=== PATIENT | female | born 1965 | race Caucasian/White ===

== ENCOUNTER → 2016-08-09 | Outpatient (REF) | payer BC | LOC: M SFHCWAGY 10:11 | PROVIDERS: ATTEND Nurse Practitioner Women's Health | DX: Z12.4 Encounter for screening for malignant neoplasm of cervix (principal); Z12.31 Encounter for screening mammogram for malignant neoplasm of breast ==

== ENCOUNTER → 2016-08-09 | Outpatient (CLI) | payer BC ==
--- NOTE | 2016-08-09 11:25 | REPMRS ---
Patient History The patient states she had a clinical breast exam in 07/2016. Patient is postmenopausal. Family history of breast cancer in mother at age 75. Took hormonal contraceptives for 5 years. Digital Woman Screen Mammo: August 09, 2016 - Exam #: [id number] Bilateral CC and MLO view(s) were taken. Technologist: Shania Retana, Technologist Prior study comparison: August 09, 2015, digital woman screen mammo performed at [facility]. August 05, 2014, digital woman screen mammo performed at [facility]. FINDINGS: There are scattered fibroglandular densities. There has been no change in the appearance of the mammogram from the prior studies. There is a mild amount of residual fibroglandular tissue which is fairly symmetric. There is no interval development of dominant mass, architectural distortion, or clustered microcalcification suggestive of malignancy. No significant changes when compared with prior studies. ASSESSMENT: BI-RADS/ACR category 1 mammogram. Negative. Recommendation Routine screening mammogram in 1 year (for women over age 40). This mammogram was interpreted with the aid of an FDA-approved computer-aided dectection system. A. Negative x-ray reports should not delay biopsy if a dominant or clinically suspicious mass is present. B. Four to eight percent of cancers are not identified by mammography. C. Adenosis and dense breast may obscure an underlying neoplasm. Electronically Signed By: Rogelio Garvin MD 08/09/16 [id number]
== END ==
LOC: M WHC 10:03
PROVIDERS: ATTEND Nurse Practitioner Women's Health
DX: Z12.31 Encounter for screening mammogram for malignant neoplasm of breast (principal)

== ENCOUNTER → 2017-08-10 | Outpatient (CLI) | payer BC | LOC: M WHC 10:00 | DX: Z12.31 Encounter for screening mammogram for malignant neoplasm of breast (principal); R92.8 Other abnormal and inconclusive findings on diagnostic imaging of breast; Z78.0 Asymptomatic menopausal state; Z80.3 Family history of malignant neoplasm of breast; Z92.0 Personal history of contraception | CPT/HCPCS: 77067 ==

== ENCOUNTER → 2017-08-10 | Outpatient (REF) | payer BC | LOC: M SFHCWAGY 11:20 | DX: Z12.4 Encounter for screening for malignant neoplasm of cervix (principal); N95.2 Postmenopausal atrophic vaginitis | CPT/HCPCS: G0123 ==

== ENCOUNTER → 2017-10-30 | Outpatient (CLI) | payer BC ==
[~2017-10-30] MED LIST: GASTROGRAFIN SOLUTION 30ML (Q9963) As Ordered; ISOVUE-370 76% 100ML VIAL (Q9967) As Ordered
== END ==
LOC: M RAD 14:29
DX: C18.2 Malignant neoplasm of ascending colon (principal)
CPT/HCPCS: Q9963

== ENCOUNTER → 2017-12-11 | Outpatient (REF) | payer BC ==
[2017-12-11 13:08] LABS: INR 0.86; PROTHROMBIN TIME 11.8 SECONDS (12.1-14.4)
[2017-12-11 13:09] LABS: PARTIAL THROMBOPLASTIN TIME 27.5 SECONDS (25.4-37.6)
[2017-12-11 13:28] LABS: CARCINOEMBRYONIC ANTIGEN 1.4 NG/ML (<2.5)
== END ==
LOC: M LAB REF 12:50
DX: C18.9 Malignant neoplasm of colon, unspecified (principal)
CPT/HCPCS: 82378

== ENCOUNTER → 2018-01-08 | Outpatient (CLI) | payer BC | LOC: M PLARAD 11:09 | DX: C18.9 Malignant neoplasm of colon, unspecified (principal); R59.0 Localized enlarged lymph nodes | CPT/HCPCS: 78815 ==

== ENCOUNTER → 2018-01-09 | Outpatient (CLI) | payer BC ==
[~2018-01-09] MED LIST changes: -GASTROGRAFIN SOLUTION 30ML (Q9963) As Ordered; -ISOVUE-370 76% 100ML VIAL (Q9967) As Ordered; +LIDOCAINE 2% MDV 20 ML VIAL As Ordered; +ceFAZolin 1GM INJ (J0690 PER 500MG) As Ordered
== END | disposition home or self-care (01) ==
LOC: M IRPRO 07:47
DX: C18.9 Malignant neoplasm of colon, unspecified (principal)
CPT/HCPCS: 36561

== ENCOUNTER 2018-01-22 06:05 | Day surgery (SDC) | payer BC ==
[2018-01-22] MEDS: LR 1,000 ML IV (06:48)
[2018-01-22] MEDS ORDERED: PROPOFOL 200 MG/20 ML VIAL As Ordered (07:17)
[2018-01-22] MEDS ORDERED: ROCURONIUM BROMIDE 50 MG/5 ML VIAL As Ordered (07:17)
[2018-01-22] MEDS ORDERED: ONDANSETRON 4MG/2ML VIAL (J2405) As Ordered (07:17)
[2018-01-22] MEDS ORDERED: LIDOCAINE 2% INJ 100 MG/5 ML SDV (FOR ANES.) As Ordered (07:17)
[2018-01-22] MEDS ORDERED: dexameTHASONE 4 MG/ML 1ML VIAL (J1100) As Ordered (07:17)
[2018-01-22] MEDS ORDERED: MIDAZOLAM INJ 2 MG/2 ML VIAL (J2250) As Ordered (07:18)
[2018-01-22] MEDS ORDERED: fentaNYL 100 MCG/2 ML INJECTION (J3010) As Ordered (07:18)
[2018-01-22] MEDS: THROMBIN SOLN 20,000 UNITS KIT As Ordered (07:24)
[2018-01-22] MEDS: EPINEPHrine 1MG/10ML SYRINGE 1.5IN As Ordered (07:24)
[2018-01-22] MEDS: LIDOCAINE VISCOUS 2% SOLN 15ML UDC As Ordered (07:24)
[2018-01-22] MEDS: LIDOCAINE 1% SDV INJ 30 ML VIAL As Ordered (07:24)
[2018-01-22] MEDS: CETACAINE SPRAY 5GM As Ordered (07:54)
[2018-01-22] MEDS ORDERED: ePHEDrine SULFATE 25 MG/5 ML(5MG/ML) SYRINGE As Ordered (08:11)
[2018-01-22] MEDS ORDERED: NEOSTIGMINE 10 MG/10 ML VIAL (J2710) As Ordered (08:38)
[2018-01-22] MEDS ORDERED: GLYCOPYRROLATE INJ 0.2 MG/ML 2 ML VIAL As Ordered (08:38)
[2018-01-22] MEDS ORDERED: ONDANSETRON 4MG/2ML VIAL (J2405) IV (09:00)
[2018-01-22] MEDS ORDERED: METOCLOPRAMIDE INJ 10MG/2ML VIAL (J2765) IV (09:00)
[2018-01-22] MEDS ORDERED: fentaNYL 100 MCG/2 ML INJECTION (J3010) IV (09:00)
[2018-01-22] MEDS ORDERED: PERCOCET 5MG/325MG TAB PO (09:00)
[2018-01-22] MEDS ORDERED: LR 1,000 ML IV (09:00)
== END 2018-01-22 10:41 | disposition home or self-care (01) ==
LOC: M SDC 06:05
DX: R59.0 Localized enlarged lymph nodes (principal); R00.2 Palpitations; E03.9 Hypothyroidism, unspecified; C18.9 Malignant neoplasm of colon, unspecified; D64.9 Anemia, unspecified; Z79.899 Other long term (current) drug therapy; Z78.0 Asymptomatic menopausal state; Z98.51 Tubal ligation status
CPT/HCPCS: 31628

== ENCOUNTER → 2018-08-06 | Outpatient (CLI) | payer BC ==
[~2018-08-06] MED LIST changes: +AUGM500T34 PO; +COLA100C5 PO; +FERR325T3 PO; +IRON27TA2 PO; +LEVO100T5 PO; +LEVO75TA34 PO; +LEVO88TA24 PO; -LIDOCAINE 2% MDV 20 ML VIAL As Ordered; +MUCI1LIQ PO; +PROC10TA4 PO; +SENO8.6T5 PO; +VITA500C24 PO; +ZOFR8TAB24 PO; -ceFAZolin 1GM INJ (J0690 PER 500MG) As Ordered
--- NOTE | 2018-08-06 16:31 | REP ---
PET/CT: History: Restaging colon carcinoma. Comparisons: Comparison PET-CT study January 08, 2018. TECHNIQUE: 67 minutes following the intravenous injection of a 9.0 mCi dose of F-18 FDG, three-dimensional PET scintigraphy is acquired from the skull base to the proximal thighs. Triplanar noncontrast CT scanning is acquired through the same anatomic range for attenuation correction, and image registration with scan parameters optimized to minimize radiation exposure to the patient. PET scintigraphy and CT datasets were fused and displayed on a workstation with multiplanar and projection display capability. PET/CT Findings: There is a right-sided Tigvvl-O-Irsq catheter noted in place. Previously noted hypermetabolic uptake in the right lower quadrant of the abdomen is not apparent today. Normal gastrointestinal mucosal uptake is seen. Normal genitourinary, hepatic, and splenic uptake is observed. No abnormal hypermetabolic uptake is seen in the abdomen or pelvis today. There is improvement noted also in the mediastinum although there is still some residual hypermetabolic mediastinal adenopathy. These nodes are decreased in size. Maximum standard uptake value and hypermetabolic right hilar lymph node is 5.55. Subcarinal lymph node hyperactivity is seen maximum standard uptake value 5.87. There is hypermetabolic jose antonio uptake in a left anterior mediastinal node with maximum standard uptake value 4.85. There is residual hypermetabolic jose antonio uptake in the right superior mediastinal node with maximum standard uptake value 5.96. Uptake is again seen bilaterally in the thyroid gland diffusely unchanged. Focus noted previously just lateral to the descending aorta at the level of the left atrium is not seen today. No other abnormal hypermetabolic uptake is seen within the chest. There are healing or healed rib fractures involving the anterior aspect of the right fourth, fifth, and sixth ribs and the left fourth, fifth, sixth, and seventh ribs. There is minimal FDG accumulation at these sites. No suspicious skeletal hypermetabolic uptake is seen. No suspicious pulmonary nodule is appreciated. Impression: 1. Improvement noted PET scintigraphy findings. There is no longer abnormal hypermetabolic uptake in the abdomen. Previously noted hypermetabolic mediastinal adenopathy is decreased in size and avidity. No new hypermetabolic uptake is seen. 2. Multiple healing rib fractures noted bilaterally. Vpymba-R-Prfy catheter seen. Electronically Signed by Derek Macias MD 08/06/2018 05:25 P
== END ==
LOC: M PLARAD 07:27
PROVIDERS: ATTEND Internal Medicine Hematology & Oncology
DX: C18.2 Malignant neoplasm of ascending colon (principal)
CPT/HCPCS: 78815; A9552

== ENCOUNTER → 2018-08-12 | Outpatient (CLI) | payer BC ==
--- NOTE | 2018-08-12 11:04 | REPMRS ---
Patient History The patient states she had a clinical breast exam in 08/2018. Patient is postmenopausal, has history of colorectal cancer at age 52, and had previous chemotherapy at age 52. Family history of breast cancer at age 75 in mother. Took hormonal contraceptives for 5 years. 3D TOMOSYNTHESIS WAS PERFORMED. Digital Woman Screen Mammo: August 12, 2018 - Exam #: [id number] Bilateral CC and MLO view(s) were taken. Technologist: Tara Still, Technologist Prior study comparison: August 10, 2017, digital woman screen mammo performed at [facility]. August 09, 2016, digital woman screen mammo performed at [facility]. FINDINGS: The breast tissue is heterogeneously dense. This may lower the sensitivity of mammography. There has been no change in the appearance of the mammogram from the prior studies. There is a moderate amount of residual fibroglandular tissue which is fairly symmetric. There is no interval development of dominant mass, areas of architectural distortion, or clustered microcalcification typical of malignancy. Assessment: BI-RADS/ACR category 1 mammogram. Negative Mammogram. Recommendation Routine screening mammogram in 1 year (for women over age 40). This mammogram was interpreted with the aid of an FDA-approved computer-aided dectection system. Electronically Signed By: Gonzalez Daugherty MD 08/12/18 1555
== END ==
LOC: M WHC 09:36
PROVIDERS: ATTEND Nurse Practitioner Women's Health
DX: Z12.31 Encounter for screening mammogram for malignant neoplasm of breast (principal)

== ENCOUNTER 2018-08-19 08:36 | Day surgery (SDC) | payer BC ==
[~2018-08-19] VITALS: Ht 167.6 cm; Wt 70.5 kg
[~2018-08-19 08:36] MED LIST changes: +ALBUTEROL SULFATE 2.5 MG/0.5 ML INH NEB SOLN INH ONE; +LIDOCAINE 2% INJ 100 MG/5 ML SDV (FOR ANES.) As Ordered ONE; +LIDOCAINE 4% INJ 5 ML AMP INH ONE; +LR 1,000 ML IV ONE; +MIDAZOLAM INJ 2 MG/2 ML VIAL (J2250) As Ordered ONE; +ONDANSETRON 4MG/2ML VIAL (J2405) As Ordered ONE; +PROPOFOL 200 MG/20 ML VIAL As Ordered ONE; +ROCURONIUM BROMIDE 50 MG/5 ML VIAL As Ordered ONE; +dexameTHASONE 4 MG/ML 1ML VIAL (J1100) As Ordered ONE; +fentaNYL 100 MCG/2 ML INJECTION (J3010) As Ordered ONE
[2018-08-19] MEDS ORDERED: LIDOCAINE 1% SDV INJ 30 ML VIAL As Ordered ONE (10:02)
[2018-08-19] MEDS ORDERED: EPINEPHrine 1MG/10ML SYRINGE 1.5IN As Ordered ONE (10:02)
[2018-08-19] MEDS ORDERED: LIDOCAINE VISCOUS 2% SOLN 15ML UDC As Ordered ONE (10:02)
[2018-08-19] MEDS ORDERED: CETACAINE SPRAY 5GM As Ordered ONE (10:59)
[2018-08-19] MEDS ORDERED: dexameTHASONE 4 MG/ML 1ML VIAL (J1100) As Ordered ONE (11:10)
--- NOTE | 2018-08-19 12:31 | ROOR ---
Patient Name: Margarette Gutierrez Procedure Date: 08/19/2018 8:56 AM Date of : 1965 Admit Type: Outpatient Age: 52 Note Status: Finalized Attending MD: Debra Jarrett MD Procedure: Bronchoscopy Indications: Bilateral hilar lymphadenopathy, Mediastinal adenopathy, Paratracheal adenopathy Providers: Debra Jarrett MD (Doctor) Referring MD: 1. No Referring Physician 1. No Referring Physician, Admin. (Referring MD) Requesting Physician: Medicines: General Anesthesia, Cetacaine topical Complications: No immediate complications. Estimated blood loss: Minimal Procedure: Pre-Anesthesia Assessment: - Prior to the procedure, a History and Physical was performed, and patient medications and allergies were reviewed. The patient's tolerance of previous anesthesia was also reviewed. The risks and benefits of the procedure and the sedation options and risks were discussed with the patient. All questions were answered, and informed consent was obtained. Prior Anticoagulants: The patient has taken no previous anticoagulant or antiplatelet agents. ASA Grade Assessment: III - A patient with severe systemic disease. After reviewing the risks and benefits, the patient was deemed in satisfactory condition to undergo the procedure. The Bronchoscope was introduced through the mouth, via the endotracheal tube (the patient was intubated for the procedure) and advanced to the tracheobronchial tree of both lungs. The procedure was accomplished without difficulty. The patient tolerated the procedure well. Findings: The endotracheal tube is in good position. The visualized portion of the trachea is of normal caliber. The sb is sharp. The tracheobronchial tree was examined to at least the first subsegmental level. Bronchial mucosa and anatomy are normal; there are no endobronchial lesions, and no secretions, there was mild pitting in bronchial mucosa. An endobronchial ultrasound endoscope was utilized in order to assist with fine needle aspiration in the right paratracheal area, in the subcarinal area, in the right hilum and in the left hilum. Transbronchial needle aspirations of lymph nodes were performed in the right paratracheal area, in the subcarinal area, in the right hilum and in the left hilum using an Olympus EBUS-TBNA 21 gauge needle and sent for routine cytology. The procedure was guided by ultrasound. Impression: - Bilateral hilar lymphadenopathy - Mediastinal adenopathy - Paratracheal adenopathy - The airway examination was normal. - Endobronchial ultrasound was performed. - A transbronchial needle aspiration was performed. Recommendation: - Follow up with bronchoscopist as previously scheduled. Attending Participation: I personally performed the entire procedure. Debra Jarrett MD 08/19/2018 12:31:33 PM Number of Addenda: 0 Note Initiated On: 08/19/2018 8:56 AM
[2018-08-19] MEDS ORDERED: fentaNYL 100 MCG/2 ML INJECTION (J3010) IV PRN (12:45)
[2018-08-19] MEDS ORDERED: LR 1,000 ML IV SCH (12:45)
[2018-08-19] MEDS ORDERED: ONDANSETRON 4MG/2ML VIAL (J2405) IV PRN (12:45)
[2018-08-19] MEDS ORDERED: PERCOCET 5MG/325MG TAB PO PRN (12:45)
[2018-08-19 13:00] VITALS: BP 118/70
== END 2018-08-19 13:17 | disposition home or self-care (01) ==
LOC: M SDC 08:36
PROVIDERS: ATTEND Internal Medicine Pulmonary Disease
DX: R59.0 Localized enlarged lymph nodes (principal); C18.9 Malignant neoplasm of colon, unspecified; E03.9 Hypothyroidism, unspecified; Z79.899 Other long term (current) drug therapy; Z92.21 Personal history of antineoplastic chemotherapy
CPT/HCPCS: 31653; 88173; 88305; 88313; J1100; J2250; J2405; J3010

== ENCOUNTER → 2018-10-17 | Outpatient (CLI) | payer BC ==
[~2018-10-17] MED LIST changes: -ALBUTEROL SULFATE 2.5 MG/0.5 ML INH NEB SOLN INH ONE; +GASTROGRAFIN SOLUTION 30ML (Q9963) As Ordered ONE; +ISOVUE-370 76% 100ML VIAL (Q9967) As Ordered ONE; +LEVO-88 PO; -LIDOCAINE 2% INJ 100 MG/5 ML SDV (FOR ANES.) As Ordered ONE; -LIDOCAINE 4% INJ 5 ML AMP INH ONE; -LR 1,000 ML IV ONE; -MIDAZOLAM INJ 2 MG/2 ML VIAL (J2250) As Ordered ONE; -ONDANSETRON 4MG/2ML VIAL (J2405) As Ordered ONE; -PROPOFOL 200 MG/20 ML VIAL As Ordered ONE; -ROCURONIUM BROMIDE 50 MG/5 ML VIAL As Ordered ONE; -dexameTHASONE 4 MG/ML 1ML VIAL (J1100) As Ordered ONE; -fentaNYL 100 MCG/2 ML INJECTION (J3010) As Ordered ONE
--- NOTE | 2018-10-18 06:57 | REP ---
Clinical: Restaging colon cancer. Technique: Axial contrast enhanced images from the thoracic inlet to the upper abdomen with coronal and sagittal re-formations. Comparison: 10/30/2017. Findings: Considerable improvement to the previously noted mild mediastinal and hilar adenopathy which now appears essentially normal. Lung raines are clear and without consolidation, nodule or mass lesion. No pleural effusion. No pneumothorax. Tracheobronchial tree is patent. Mediastinum demonstrates normal thoracic aorta, pulmonary vasculature and heart/pericardium. Osseous structures without focal abnormality. Old healed rib fractures again noted. Impression: 1. No acute mediastinal or pleuroparenchymal process appreciated. 2. Previously noted subtle mediastinal and hilar adenopathy has resolved. Electronically Signed by Hari Jacobo MD 10/18/2018 06:48 A
--- NOTE | 2018-10-18 07:03 | REP ---
Clinical: Restaging colon cancer. Technique: Axial contrast enhanced images from the lung bases to the pubic symphysis using oral (per protocol) and 100 ml Isovue 370 intravenous contrast material with coronal and sagittal re-formations. Comparison: 10/30/2017. Findings: Lung bases are clear. Visualized heart and pericardium normal. Liver, spleen, pancreas, gallbladder, bilateral adrenal glands and kidneys are normal. The enteric system is without obstruction or acute inflammatory process. Pelvis demonstrates normal bladder and age-appropriate uterus/adnexa. No ascites. No free air. No significant adenopathy. No obvious focal mass lesion. Abdominal aorta and vasculature without aneurysm or dissection. Musculoskeletal structures intact without focal osseous abnormality. Impression: No acute abdominopelvic pathology appreciated. Specifically, no evidence for metastatic disease or recurrence. Electronically Signed by Hari aJcobo MD 10/18/2018 06:54 A
== END ==
LOC: M RAD 11:59
PROVIDERS: ATTEND Internal Medicine Hematology & Oncology
DX: C18.9 Malignant neoplasm of colon, unspecified (principal)
CPT/HCPCS: 71260; 74177; Q9963; Q9967

== ENCOUNTER → 2019-09-02 | Outpatient (CLI) | payer BC ==
--- NOTE | 2019-09-04 06:09 | REP ---
Clinical: History of colon cancer for restaging. Technique: Axial contrast enhanced images from the thoracic inlet to the upper abdomen with coronal and sagittal re-formations using 100 ml Isovue 370 intravenous contrast material followed by CT of the abdomen and pelvis. Comparison: 10/17/2018. Findings: The bilateral lung raines are well-aerated and demonstrate minimal age-related interstitial changes. No acute consolidation, significant nodule or mass lesion appreciated. No pleural effusion. No pneumothorax. Tracheobronchial tree is patent. No axillary, hilar, or mediastinal adenopathy. Thoracic aorta and pulmonary vasculature are normal. Heart and pericardium are unremarkable. Fhonbc-Q-Kksi is identified with tip in the SVC. Osseous structures without focal acute abnormality. Impression: 1. Mild age-related interstitial changes. 2. No acute mediastinal or pleuroparenchymal process. Specifically, no obvious evidence for malignancy or metastatic disease. Electronically Signed by Hari Jacobo MD 09/04/2019 06:01 A
--- NOTE | 2019-09-04 06:16 | REP ---
Clinical: History of colon cancer for restaging. Comparison: 10/17/2018. Technique: Axial contrast enhanced images from the lung bases to the pubic symphysis using oral (per protocol) and 100 ml Isovue 370 intravenous contrast material. Findings: Liver, spleen, pancreas, gallbladder, bilateral adrenal glands and kidneys are normal. The enteric system is without obstruction or acute inflammatory process. Few scattered sigmoid diverticula are suggested without acute diverticulitis. Pelvis demonstrates normal bladder and age-appropriate uterus/adnexa. No pelvic fluid or ascites. No free air. No adenopathy. No focal inflammatory stranding or obvious focal mass lesion. Abdominal aorta and vasculature appear normal. Musculoskeletal structures are intact without acute abnormality. Impression: No acute abdominopelvic pathology appreciated. No evidence for recurrence or metastatic disease. Electronically Signed by Hari Jacobo MD 09/04/2019 06:08 A
== END ==
LOC: M RAD 12:57
PROVIDERS: ATTEND Internal Medicine Hematology & Oncology
DX: C18.2 Malignant neoplasm of ascending colon (principal)
CPT/HCPCS: 71260; 74177; Q9963; Q9967

== ENCOUNTER → 2020-02-25 | Outpatient (CLI) | payer BC ==
[~2020-02-25] MED LIST changes: -ISOVUE-370 76% 100ML VIAL (Q9967) As Ordered ONE; +ISOVUE-370 76% 100ML VIAL As Ordered ONE; +SYNT75TA PO
--- NOTE | 2020-03-01 12:40 | REP ---
DATE: 02/25/[address] OF THE CHEST CLINICAL: Re-staging colon cancer. COMPARISON: 09/02/2019, 10/17/2018 TECHNIQUE: Axial contrast enhanced images from the thoracic inlet to the upper abdomen with coronal and sagittal reformations using 100 cc of Isovue 370 intravenous contrast material followed by CT of the abdomen and pelvis. FINDINGS: The bilateral lung raines are well aerated and without consolidation, significant nodule or mass lesion. No pleural effusion or pneumothorax. Tracheobronchial tree is patent. Mediastinum demonstrates normal thoracic aorta, pulmonary vasculature, heart size, pericardium. No axillary, hilar or mediastinum adenopathy is appreciated. Infusaport in the right anterior chest wall with tip extending into the SVC/right atrium. Musculoskeletal structures demonstrate hemangioma at the T11 level . No further acute osseous abnormality noted. IMPRESSION: 1. No acute mediastinal or pleural parenchymal process. 2. Specifically no evidence for metastases. MTDD
--- NOTE | 2020-03-01 12:41 | REP ---
CONTRAST ENHANCED CT OF THE ABDOMEN AND PELVIS DATE: 02/25/2020 CLINICAL: Colon cancer re-staging. TECHNIQUE: Axial contrast enhanced images from the lung bases to the pubic symphysis using oral (per protocol) and 100 cc Isovue 370 intravenous contrast material with delayed images of the abdomen, as well as coronal and sagittal reformations. COMPARISON: 09/02/2019 FINDINGS: Liver, spleen, pancreas, gallbladder, bilateral adrenal glands and kidneys are normal. The enteric system is without obstruction or acute inflammatory process. Suture line and post surgical changes in the right lower quadrant are identified and the surrounding pericolonic fat appears normal. No associated obvious evidence for recurrence or adjacent adenopathy noted. The remainder of the small and large bowel is unremarkable. Pelvis demonstrates normal bladder and age-appropriate uterus size and adnexa. No pelvic fluid or ascites. No free air. No adenopathy. Abdominal aorta and vasculature normal. Musculoskeletal structures demonstrate age-related changes without acute osseous abnormality. IMPRESSION: 1. No acute abdominopelvic pathology appreciated. 2. No evidence for recurrence of metastatic disease. MTDD
== END ==
LOC: M RAD 08:53
PROVIDERS: ATTEND Internal Medicine Hematology & Oncology
DX: C18.2 Malignant neoplasm of ascending colon (principal)
CPT/HCPCS: 71260; 74177; Q9963; Q9967

== ENCOUNTER → 2020-07-08 | Outpatient (REF) | payer BC ==
[~2020-07-08] MED LIST changes: -GASTROGRAFIN SOLUTION 30ML (Q9963) As Ordered ONE; -ISOVUE-370 76% 100ML VIAL As Ordered ONE
== END ==
LOC: M SFHCWAGY 13:24
PROVIDERS: ATTEND Nurse Practitioner Women's Health
DX: Z12.4 Encounter for screening for malignant neoplasm of cervix (principal); N88.8 Other specified noninflammatory disorders of cervix uteri
CPT/HCPCS: 87624; G0123

== ENCOUNTER → 2020-07-08 | Outpatient (CLI) | payer BC ==
--- NOTE | 2020-07-08 12:51 | REPMRS ---
Patient History The patient states she had a clinical breast exam in June 2020. Family history of breast cancer at age 75 in mother. Took hormonal contraceptives for 5 years. Digital Woman Screen Mammo: July 08, 2020 - Exam #: [id number] Bilateral CC and MLO view(s) were taken. Technologist: RT Lizbeth Prior study comparison: August 12, 2018, bilateral digital woman screen mammo performed at [facility]. August 10, 2017, digital woman screen mammo performed at [facility]. August 09, 2016, digital woman screen mammo performed at [facility]. FINDINGS: There are scattered fibroglandular densities. The Volpara volumetric breast density category is:B. An Vlhgib-T-Nquq reservoir overlies the superomedial aspect of the right breast. There has been no change in the appearance of the mammogram from the prior studies. There is a mild amount of scattered fibroglandular density which is fairly symmetric. There is no interval development of dominant mass, architectural distortion, or grouped microcalcification suggestive of malignancy. 3-D tomosynthesis shows no additional findings. Assessment: BI-RADS/ACR category 2 mammogram. Benign Findings. Recommendation Routine screening mammogram of both breasts in 1 year (for women over age 40). This patient's [facility] Lifetime Breast Cancer Risk is estimated at 16.2 %. This mammogram was interpreted with the aid of an FDA-approved computer-aided dectection system. Electronically Signed By: Mayank Macias MD 07/08/20 [id number]
== END ==
LOC: M WHC 11:08
PROVIDERS: ATTEND Nurse Practitioner Women's Health
DX: Z12.31 Encounter for screening mammogram for malignant neoplasm of breast (principal); Z80.3 Family history of malignant neoplasm of breast; Z92.0 Personal history of contraception

== ENCOUNTER → 2020-09-02 | Outpatient (CLI) | payer BC ==
[~2020-09-02] MED LIST changes: +GASTROGRAFIN SOLUTION 30ML (Q9963) As Ordered ONE; +ISOVUE-370 76% 100ML VIAL As Ordered ONE
--- NOTE | 2020-09-02 13:48 | REP ---
INDICATION: COLON CA. COMPARISON: Multiple the latest 02/25/2020 also after intravenous contrast administration TECHNIQUE: Standard helical technique after the intravenous administration of 100 cc Isovue 370 FINDINGS: The mediastinum and pulmonary lissa are stable. There is no mass or adenopathy. There are no pleural or pericardial effusions. There is no change in appearance of the imaged osseous structures. Note is again made of a benign vertebral body hemangioma T11. Evaluation of the lung raines shows no new abnormal nodules, masses, or opacities. IMPRESSION: There is no evidence of acute disease or significant change compared to the prior exams. <Electronically signed by Bairon Torres > 09/02/20 [id number]
--- NOTE | 2020-09-02 13:53 | REP ---
INDICATION: COLON CA. COMPARISON: Multiple the latest 02/15/2020 TECHNIQUE: Standard helical technique after the intravenous administration of 100 cc Isovue 370 and oral bowel preparatory contrast administration FINDINGS: The liver, gallbladder, spleen, pancreas, adrenal glands, and kidneys are unchanged and again seen to be within normal limits. Incidental note is again made of an extrarenal pelvis on the left. The abdominal aorta and para-aortic regions are within normal limits and unchanged. The bowel loops and the mesenteries are unchanged. Right lower quadrant postoperative changes are again noted status quo. There is no evidence of a mass or adenopathy. There is no evidence of free fluid or free air. Bone window technique throughout the examination shows no significant change in appearance of the osseous structures. IMPRESSION: There is no evidence of acute disease or significant change compared to the prior exam. <Electronically signed by Bairon Torres > 09/02/20 1114
== END ==
LOC: M RAD 11:07
PROVIDERS: ATTEND Internal Medicine Hematology & Oncology
DX: C18.9 Malignant neoplasm of colon, unspecified (principal)
CPT/HCPCS: 71260; 74177; Q9963; Q9967

== ENCOUNTER → 2021-02-17 | Outpatient (CLI) | payer BC ==
[~2021-02-17] MED LIST changes: +CALC600C3 PO; +LEVO125C PO; +MAGN400C PO; +PROB1CAP10 PO
--- NOTE | 2021-02-17 14:00 | REP ---
INDICATION: COLON CA COMPARISON: Multiple latest 09/02/2020 also with contrast TECHNIQUE: Standard helical technique after the intravenous administration of 100 cc Isovue 370 FINDINGS: The mediastinum and pulmonary lissa are stable. No mass or adenopathy has developed. There are no pleural or pericardial effusions. The imaged osseous structures are stable and intact. Evaluation of the lung raines shows no new abnormal nodules, masses, or opacities. IMPRESSION: Stable CT examination of the chest. There is no evidence of acute disease. <Electronically signed by Bairon Torres > 02/17/21 0719
--- NOTE | 2021-02-17 14:03 | REP ---
INDICATION: COLON CA. COMPARISON: Multiple latest 09/02/2020 TECHNIQUE: Standard helical technique after the intravenous administration of 100 cc Isovue 370 and oral bowel preparatory contrast administration. FINDINGS: The liver, gallbladder, spleen, pancreas, adrenal glands, and kidneys are unchanged. The abdominal aorta and para-aortic regions are unchanged. The bowel loops and the mesenteries are essentially unchanged. There are right lower quadrant postoperative changes status quo. There is no evidence of a mass or adenopathy. There is no free fluid or free air. Bone window technique throughout the examination shows the osseous structures to be stable. IMPRESSION: Stable CT examination of the abdomen and pelvis as described above. There is no evidence of acute disease. <Electronically signed by Bairon Torres > 02/17/21 [id number]
== END ==
LOC: M RAD 11:48
PROVIDERS: ATTEND Internal Medicine Hematology & Oncology
DX: C18.9 Malignant neoplasm of colon, unspecified (principal)
CPT/HCPCS: 71260; 74177; Q9963; Q9967

== ENCOUNTER → 2021-08-22 | Outpatient (CLI) | payer BC ==
[~2021-08-22] MED LIST changes: -PROC10TA4 PO; +PROC10TA5 PO
== END ==
LOC: M RAD 11:10
PROVIDERS: ATTEND Specialist
DX: C18.9 Malignant neoplasm of colon, unspecified (principal); Z90.49 Acquired absence of other specified parts of digestive tract
CPT/HCPCS: 71260; 74177; Q9963; Q9967

== ENCOUNTER → 2022-01-30 | Outpatient (CLI) | payer BC ==
[~2022-01-30] MED LIST changes: -GASTROGRAFIN SOLUTION 30ML (Q9963) As Ordered ONE; -ISOVUE-370 76% 100ML VIAL As Ordered ONE
== END ==
LOC: M WHC 08:56
PROVIDERS: ATTEND Internal Medicine Medical Oncology
DX: Z12.31 Encounter for screening mammogram for malignant neoplasm of breast (principal)

== ENCOUNTER → 2022-02-21 | Outpatient (CLI) | payer BC ==
[~2022-02-21] MED LIST changes: +GASTROGRAFIN SOLUTION 30ML (Q9963) As Ordered ONE; +ISOVUE-370 76% 100ML VIAL As Ordered ONE
== END ==
LOC: M RAD 10:33
PROVIDERS: ATTEND Internal Medicine Medical Oncology
DX: C18.9 Malignant neoplasm of colon, unspecified (principal); I25.84 Coronary atherosclerosis due to calcified coronary lesion; I70.0 Atherosclerosis of aorta
CPT/HCPCS: 71260; 74177; Q9963; Q9967

== ENCOUNTER → 2022-08-29 | Outpatient (CLI) | payer BC ==
[~2022-08-29] MED LIST changes: -GASTROGRAFIN SOLUTION 30ML (Q9963) As Ordered ONE; +GASTROGRAFIN SOLUTION 30ML As Ordered ONE
== END ==
LOC: M RAD 08:28
PROVIDERS: ATTEND Internal Medicine Medical Oncology
DX: C18.9 Malignant neoplasm of colon, unspecified (principal)
CPT/HCPCS: 71260; 74177; Q9963; Q9967

== ENCOUNTER → 2023-02-12 | Outpatient (CLI) | payer BC ==
[~2023-02-12] MED LIST changes: -GASTROGRAFIN SOLUTION 30ML As Ordered ONE; -ISOVUE-370 76% 100ML VIAL As Ordered ONE
== END ==
LOC: M WHC 10:39
PROVIDERS: ATTEND Internal Medicine Medical Oncology
DX: Z12.31 Encounter for screening mammogram for malignant neoplasm of breast (principal)

== ENCOUNTER → 2023-08-30 | Outpatient (CLI) | payer BC ==
[~2023-08-30] MED LIST changes: +GASTROGRAFIN SOLUTION 30ML As Ordered ONE; +ISOVUE-370 76% 100ML VIAL As Ordered ONE
== END ==
LOC: M RAD 07:43
PROVIDERS: ATTEND Internal Medicine Medical Oncology
DX: C18.9 Malignant neoplasm of colon, unspecified (principal)

== ENCOUNTER → 2024-02-14 | Outpatient (CLI) | payer BC ==
[~2024-02-14] MED LIST changes: -GASTROGRAFIN SOLUTION 30ML As Ordered ONE; -ISOVUE-370 76% 100ML VIAL As Ordered ONE; +PROBCAP14 PO
== END ==
LOC: M WHC 10:09
PROVIDERS: ATTEND Internal Medicine Medical Oncology
DX: Z12.31 Encounter for screening mammogram for malignant neoplasm of breast (principal)

== ENCOUNTER → 2025-02-16 | Outpatient (CLI) | payer BC ==
[~2025-02-16] MED LIST changes: -LEVO125C PO; +LEVO125C2 PO; +SENN-225 PO; -SENO8.6T5 PO
== END ==
LOC: M WHC 09:44
PROVIDERS: ATTEND Internal Medicine Medical Oncology
DX: Z12.31 Encounter for screening mammogram for malignant neoplasm of breast (principal); R92.323 Mammographic fibroglandular density, bilateral breasts